=== PATIENT | female | born 1965 | race American Indian/Alaskan Native ===

== ENCOUNTER 2019-05-04 00:31 | Emergency (ER) | payer SELFPAY ==
[2019-05-04 00:43] VITALS: BP 142/84
--- NOTE | 2019-05-04 01:11 | XRay Report ---
CHEST 2 VIEWS INDICATION / CLINICAL INFORMATION: cough. COMPARISON: None available. FINDINGS: SUPPORT DEVICES: None. HEART / MEDIASTINUM: No significant abnormality. LUNGS / PLEURA: Mild prominence of bibasilar bronchial structures which could represent bronchitis. N o acute airspace disease. No pneumothorax. ADDITIONAL FINDINGS: No significant additional findings. IMPRESSION: 1. Possible bibasilar bronchitis. Signer Name: Martina Carr MD Signed: 05/04/2019 1:07 AM Workstation Name: [id number]
[2019-05-04] MEDS ORDERED: predniSONE 20 MG TAB PO ONE (04:49)
[2019-05-04] MEDS ORDERED: ACETAMINOPHEN 325 MG TAB PO ONE (04:49)
--- NOTE | 2019-05-04 04:52 | Emergency Department Report ---
Minor Respiratory - HPI Chief Complaint: Fever Stated Complaint: FEVER,COUGH Time Seen by Provider: 05/04/19 03:53 Pain Location: Throat Severity: mild Minor Respiratory: Yes Rhinorrhea, Yes Fever (low grade), No Sore Throat, No Able to Tolerate Fluids, No Ear Pain, No Cough, No Sick Contacts, No Hemoptysis, No Chest Pain, No Shortness of Breath Other History: This is a 53-year-old female presents the ED complaining of fever cough sore throat and body aches for the past 3 days. Patient states is been taking cold and flu medications today. Patient states that she has no asthma or COPD. Patient denies any shortness of breath or chest pain. Patient states coughing is dry intermittent throughout the day causing her throat to hurt. And causing a headache. ED Review of Systems ROS: Stated complaint: FEVER,COUGH Other details as noted in HPI Comment: All other systems reviewed and negative ED Past Medical Hx - Past Medical History Previous Medical History?: Yes Hx Hypertension: Yes (preeclampsia) - Surgical History Past Surgical History?: No - Social History Smoking Status: Never Smoker Substance Use Type: None - Medications Home Medications: Home Medications Medication Instructions Recorded Confirmed Last Taken Type Acetamin/Codeine 120-12Mg/5 ml 5 ml PO TID PRN #60 ml 05/04/19 Unknown Rx [Tylenol/Codeine] Albuterol INH(or & Nicu Only) 2 puff IH QID PRN #8.5 gram 05/04/19 Unknown Rx [ProAir HFA Inhaler] Benzonatate [Tessalon Perles] 100 mg PO Q8HR #30 capsule 05/04/19 Unknown Rx Minor Respiratory Exam - Exam General: Vital signs noted. No distress. Alert and acting appropriately. HEENT: Yes Moist Mucous Membranes, No Pharyngeal Erythema, No Pharyngeal Exudates, No Rhinorrhea, No Conjuctival Injection, No Frontal Tenderness, No Maxillary Tenderness Ear: Neither TM Bulge, Neither TM Erythema, Neither EAC Pain, Neither EAC Discharge Neck: Yes Supple, No Adenopathy Lungs: Yes Good Air Exchange, No Wheezes, No Ronchi, No Stridor, No Cough, No Labored Respirations, No Retractions, No Use of Accessory Muscles, No Other Abnormal Lung Sounds Heart: Yes Regular, No Murmur Abdomen: Yes Normal Bowel Sounds, No Tenderness, No Peritoneal Signs Skin: No Rash, No Edema Neurologic: Alert and oriented, no deficits. Musculoskeletal: Unremarkable. ED Course Vital Signs 05/04/19 05/04/19 00:37 03:07 Temperature 99.8 F H 98.9 F Pulse Rate 118 H 92 H Respiratory 20 Rate Blood Pressure 142/84 O2 Sat by Pulse 97 Oximetry ED Medical Decision Making - Radiology Data Radiology results: report reviewed, image reviewed INDICATION / CLINICAL INFORMATION: cough. COMPARISON: None available. FINDINGS: SUPPORT DEVICES: None. HEART / MEDIASTINUM: No significant abnormality. LUNGS / PLEURA: Mild prominence of bibasilar bronchial structures which could represent bronchitis. No acute airspace disease. No pneumothorax. ADDITIONAL FINDINGS: No significant additional findings. IMPRESSION: 1. Possible bibasilar bronchitis. Signer Name: Martina Carr MD Signed: 05/04/2019 1:07 AM Workstation Name: [id number] Transcribed By: DT Dictated By: Jordan Carr MD Electronically Authenticated By: Jordan Carr MD Signed Date/Time: 05/04/19106 - Medical Decision Making 53-year-old female presents with viral bronchitis. Patient is in no acute or respiratory distress. Patient was treated with prednisone, pain and cough suppressant in the ED. Vital signs normalized patient is in no distress Discussed follow-up with primary care physician in 3 to 5 days. Chest x-ray shows no signs of acute infection or pneumonia. See report above Discussed x-ray findings with the patient. Critical care attestation.: If time is entered above; I have spent that time in minutes in the direct care of this critically ill patient, excluding procedure time. ED Disposition Clinical Impression: Bronchitis, Upper respiratory infection, Viral syndrome Disposition: DC-01 TO HOME OR SELFCARE Is pt being admited?: No Does the pt Need Aspirin: No Condition: Stable Instructions: Upper Respiratory Infection (ED), Chronic Bronchitis (ED), Viral Syndrome (ED) Additional Instructions: Make sure to follow up with the primary care physician as discussed. Take all your medications as you've been prescribed. If you have any worsening symptoms or develop new symptoms please return to ED immediately. Prescriptions: Albuterol INH(or & Nicu Only) [ProAir HFA Inhaler] 2 puff IH QID PRN #8.5 gram PRN Reason: Shortness Of Breath Benzonatate [Tessalon Perles] 100 mg PO Q8HR #30 capsule Acetamin/Codeine 120-12Mg/5 ml [Tylenol/Codeine] 5 ml PO TID PRN #60 ml PRN Reason: Pain Referrals: PRIMARY CARE, [Primary Care Provider] - 3-5 Days [facility] [Outside] - 3-5 Days [facility] [Outside] - 3-5 Days Forms: Accompanied Note, Work/School Release Form(ED) Time of Disposition: 04:52
== END 2019-05-04 05:05 | disposition home or self-care (01) ==
LOC: ED 00:31
DX: J40 Bronchitis, not specified as acute or chronic (principal); J06.9 Acute upper respiratory infection, unspecified; B34.9 Viral infection, unspecified
CPT/HCPCS: 71046; 99283; J7512

== ENCOUNTER 2021-08-04 04:38 | Emergency (ER) | payer OTHER ==
[2021-08-04 05:51] LABS: Basophils % (Auto) 0.4 % (0.0-1.8); Eosinophils # (Auto) 0.1 K/mm3 (0.0-0.4); Eosinophils % (Auto) 1.6 % (0.0-4.3); Hematocrit 37.9 % (30.3-42.9); Hemoglobin 12.1 gm/dl (10.1-14.3); Lymphocytes # (Auto) 1.3 K/mm3 (1.2-5.4); Lymphocytes % (Auto) 22.2 % (13.4-35.0); Mean Corpuscular HGB Conc 32 % (30-34); Mean Corpuscular Volume 81 fl (79-97); Monocytes # (Auto) 0.4 K/mm3 (0.0-0.8); Monocytes % (Auto) 7.7 % (0.0-7.3); Platelet Count 270 K/mm3 (140-440); Red Blood Count 4.69 M/mm3 (3.65-5.03); Red Cell Distribution Width 16.2 % (13.2-15.2)
[2021-08-04 06:21] LABS: Alanine Aminotransferase 17 units/L (7-56); Albumin 3.9 g/dL (3.9-5); BUN/Creatinine Ratio 17; Blood Urea Nitrogen 15 mg/dL (7-17); Calcium 9.5 mg/dL (8.4-10.2); Hemolysis Index 19
--- NOTE | 2021-08-04 06:58 | Emergency Department Report ---
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 Pt's daughter who was in the exam room with her says they were both watching TV when they both fell asleep. Pt reports that she was trying to go to toilet to urinate when she fell dizzy and fell and tried to get up but could not she even tried to crawl but could not idea. She also mentioned that she was shaking all over her body during that period as well. Trying to get up from sitting or lying down worsen symptoms. She also reports room spinning at that time. No previous history seizure reported. No fever or chills or any other modifying or associated factors noted. - Related Data Previous Rx's Medication Instructions Recorded Last Taken Type Acetamin/Codeine 120-12Mg/5 ml 5 ml PO TID PRN #60 ml 05/04/19 Unknown Rx [Tylenol/Codeine] Albuterol Mdi (or & Nicu Only) 2 puff IH QID PRN #8.5 gram 05/04/19 Unknown Rx [ProAir HFA Inhaler] Benzonatate [Tessalon Perles] 100 mg PO Q8HR #30 capsule 05/04/19 Unknown Rx Meclizine [Antivert] 25 mg PO TID PRN 10 Days #30 tab NS 08/04/21 Unknown Rx Allergies Allergy/AdvReac Type Severity Reaction Status Date / Time No Known Allergies Allergy Verified 08/04/21 04:59 ED Review of Systems ROS: Stated complaint: DIZZY Other details as noted in HPI Comment: All other systems reviewed and negative Neurological: vertigo, other (dizziness) ED Past Medical Hx - Past Medical History Previous Medical History?: Yes Hx Hypertension: Yes (preeclampsia) Hx of Cancer: Yes (Skin) - Surgical History Past Surgical History?: No - Social History Smoking Status: Never Smoker Substance Use Type: None - Medications Home Medications: Home Medications Medication Instructions Recorded Confirmed Last Taken Type Acetamin/Codeine 120-12Mg/5 ml 5 ml PO TID PRN #60 ml 05/04/19 Unknown Rx [Tylenol/Codeine] Albuterol Mdi (or & Nicu Only) 2 puff IH QID PRN #8.5 gram 05/04/19 Unknown Rx [ProAir HFA Inhaler] Benzonatate [Tessalon Perles] 100 mg PO Q8HR #30 capsule 05/04/19 Unknown Rx Meclizine [Antivert] 25 mg PO TID PRN 10 Days #30 tab NS 08/04/21 Unknown Rx ED Physical Exam - General Limitations: No Limitations General appearance: alert, in no apparent distress - Head Head exam: Present: atraumatic, normal inspection - Eye Eye exam: Present: normal appearance Pupils: Present: normal accommodation - ENT ENT exam: Present: normal exam, normal orophraynx, TM's normal bilaterally - Neck Neck exam: Present: normal inspection, full ROM. Absent: tenderness - Respiratory Respiratory exam: Present: normal lung sounds bilaterally. Absent: respiratory distress, accessory muscle use - Cardiovascular Cardiovascular Exam: Present: regular rate, normal rhythm, normal heart sounds - GI/Abdominal GI/Abdominal exam: Present: soft, normal bowel sounds. Absent: distended, tenderness - Extremities Exam Extremities exam: Present: normal inspection, pedal edema (non pitting ). Absent: tenderness, joint swelling - Back Exam Back exam: Absent: tenderness - Neurological Exam Neurological exam: Present: alert, oriented X3 - Psychiatric Psychiatric exam: Present: normal affect, normal mood - Skin Skin exam: Present: warm, normal color ED Course Vital Signs 08/04/21 08/04/21 08/04/21 04:38 07:26 07:27 Temperature 98 F Pulse Rate 70 Pulse Rate [ 83 Lying] Pulse Rate [ 75 Sitting] Pulse Rate [ 84 Standing] Respiratory 16 Rate Blood Pressure 140/80 Blood Pressure 129/54 [Lying] Blood Pressure 143/65 [Sitting] Blood Pressure 140/82 [Standing] O2 Sat by Pulse 100 99 Oximetry 08/04/21 08/04/21 08/04/21 07:29 07:31 07:46 Temperature Pulse Rate 75 77 Pulse Rate [ Lying] Pulse Rate [ Sitting] Pulse Rate [ Standing] Respiratory 24 24 Rate Blood Pressure 130/70 130/70 Blood Pressure [Lying] Blood Pressure [Sitting] Blood Pressure [Standing] O2 Sat by Pulse 97 96 Oximetry 08/04/21 08/04/21 08/04/21 08:00 08:16 08:51 Temperature Pulse Rate 65 Pulse Rate [ Lying] Pulse Rate [ Sitting] Pulse Rate [ Standing] Respiratory 15 Rate Blood Pressure 130/70 140/82 Blood Pressure [Lying] Blood Pressure [Sitting] Blood Pressure [Standing] O2 Sat by Pulse 97 97 98 Oximetry 08/04/21 08/04/21 08/04/21 09:00 09:16 09:30 Temperature Pulse Rate 81 81 75 Pulse Rate [ Lying] Pulse Rate [ Sitting] Pulse Rate [ Standing] Respiratory 12 13 23 Rate Blood Pressure 140/82 140/82 Blood Pressure [Lying] Blood Pressure [Sitting] Blood Pressure [Standing] O2 Sat by Pulse 99 99 98 Oximetry 08/04/21 08/04/21 08/04/21 09:46 10:00 10:16 Temperature Pulse Rate 80 70 71 Pulse Rate [ Lying] Pulse Rate [ Sitting] Pulse Rate [ Standing] Respiratory 12 15 15 Rate Blood Pressure 140/82 140/82 124/60 Blood Pressure [Lying] Blood Pressure [Sitting] Blood Pressure [Standing] O2 Sat by Pulse 99 98 99 Oximetry 08/04/21 08/04/21 08/04/21 10:30 10:46 11:00 Temperature Pulse Rate 77 68 72 Pulse Rate [ Lying] Pulse Rate [ Sitting] Pulse Rate [ Standing] Respiratory 22 17 20 Rate Blood Pressure 124/60 124/60 129/69 Blood Pressure [Lying] Blood Pressure [Sitting] Blood Pressure [Standing] O2 Sat by Pulse 98 97 98 Oximetry 08/04/21 08/04/21 11:16 11:30 Temperature Pulse Rate 70 77 Pulse Rate [ Lying] Pulse Rate [ Sitting] Pulse Rate [ Standing] Respiratory 21 19 Rate Blood Pressure 129/69 129/69 Blood Pressure [Lying] Blood Pressure [Sitting] Blood Pressure [Standing] O2 Sat by Pulse 97 98 Oximetry - Reevaluation(s) Reevaluation #1: 08/04/21 13:14 Patient had IV fluids and reported feeling much better was able to get up from walk to the bathroom to urinate without any fall or symptoms. We will discharge patient home on meclizine with close follow-up with primary doctor. ED Medical Decision Making - Lab Data Result diagrams: 08/04/21 05:38 08/04/21 05:38 - EKG Data -: EKG Interpreted by Me EKG shows normal: sinus rhythm Rate: normal - EKG Data 08/04/21 13:12 Noted with normal sinus rhythm at a rate of 69 bpm with normal QTC and no ST depression or elevation noted in this normal ECG. - Radiology Data CT scan of the brain noted to be negative for any intracranial or hemorrhage. - Medical Decision Making Brought in by EMS with dizziness and a fall --and noted room spinning which is concerning for vertigo but could also be seizure but could not rule out other differential such as CVA especially posterior stroke considering the presenting dizziness/vertigo, or symptomatic anemia, myocardial infarction, pulmonary embolism considering his recent long travels, anxiety, and hypothyroidism--in order to rule those out I will go ahead and order routine cardiopulmonary work- up that include troponin, EKG, chest x-ray, BNP, CKMB, and CBC, CMP, Urinalysis and thyroid panel for any correctable infectious process or electrolyte abnormality as a cause. Will also order CT brain for any intracranial abnormality as mentioned above. In the meantime will give ivf ns 1L bolus for hydration as most are dehydrated in the hot weather anyway. Noted with elevated d-dimer 254.9 couple with her leg swellings with recent long road trip -- raise concern for DVT so doppler ordered for further evaluation Doppler ultrasound resulted to be negative for DVT--leg swelling is likely as a result of long travel and dependent. Will encourage patient to elevate legs above buttocks when laying down or sleeping. Critical care attestation.: If time is entered above; I have spent that time in minutes in the direct care of this critically ill patient, excluding procedure time. ED Disposition Clinical Impression: Dizziness, Vertigo Disposition: 01 HOME / SELF CARE / HOMELESS Is pt being admited?: No Does the pt Need Aspirin: No Condition: Stable Instructions: Dizziness, [id number] Additional Instructions: Please take your time when getting up from sitting or lying down to prevent fall and give your system time to recover Take your new medication meclizine as prescribed to help your symptoms-- Increase your daily fluid to help your hydration Please call and follow-up with your primary doctor in the next 3 to 5 days for progress Please do not hesitate to call or return to emergency room if your symptoms worsen as this could be complication that need to be reevaluated and treated Prescriptions: Meclizine [Antivert] 25 mg PO TID PRN 10 Days #30 tab NS PRN Reason: Vertigo Referrals: PRIMARY CARE,MD [Primary Care Provider] - 3-5 Days
[2021-08-04 07:59] LABS: Free T4 (Free Thyroxine) 0.93 ng/dL (0.76-1.46)
--- NOTE | 2021-08-04 08:56 | Cat Scan Report ---
NONENHANCED CT SCAN OF THE HEAD: INDICATION / CLINICAL INFORMATION: 55 years Female; dizziness/vertigo. "History of fell down and unable to get up from one hour" TECHNIQUE: Routine CT head without contrast. All CT scans at this location are performed using CT dos e reduction for ALARA by means of automated exposure control. COMPARISON: None. FINDINGS: BRAIN / INTRACRANIAL CONTENTS: No intracranial sequela from the trauma; no scalp hematoma; no fluid l evel in the paranasal sinuses No acute hemorrhage, mass effect, midline shift, hydrocephalus, or acut e, large territorial infarct. No chronic infarct or focal atrophy. Normal brain volume and ventricula r/sulcal size for age. No significant white matter abnormality. CRANIOCERVICAL JUNCTION: No significant abnormality. ORBITS: No significant abnormality of visualized orbits. SINUSES / MASTOIDS: No significant abnormality of the visualized paranasal sinuses or mastoid air anamaria ls. ADDITIONAL FINDINGS: Empty sella IMPRESSION: No focal parenchymal lesion: No intracranial sequela from the trauma Signer Name: Carolina Nelson MD Signed: 08/04/2021 8:51 AM Workstation Name: [email or web address]
[2021-08-04 09:23] LABS: Bilirubin,Urine NEG (Negative); Blood,Urine NEG (Negative); Color,Urine Straw (Yellow); Protein,Urine <15 mg/dL mg/dL (Negative); Urobilinogen,Urine < 2.0 mg/dL (<2.0)
[2021-08-04 09:28] LABS: Hyaline Casts,Urine 2 /LPF; WBC,Urine < 1.0 /HPF (0.0-6.0)
--- NOTE | 2021-08-04 12:48 | Vascular Lab Report ---
DUPLEX DOPPLER LOWER EXTREMITY VEINS, BILATERAL INDICATION: edema with recent long travel with elevated dimer. TECHNIQUE: Duplex doppler imaging was performed through the veins of both lower extremities using ve nous compression and other maneuvers. COMPARISON: No relevant prior imaging study available. FINDINGS: Right Common femoral vein: Negative. Right Superficial femoral vein: Negative. Right Popliteal vein: Negative. Right Calf veins: Negative. Left Common femoral vein: Negative. Left Superficial femoral vein: Negative. Left Popliteal vein: Negative. Left Calf veins: Negative. Additional findings: None. IMPRESSION: No sonographic evidence for DVT in either lower extremity. Signer Name: Johnny Tarango Jr, MD Signed: 08/04/2021 12:43 PM Workstation Name: [id number]
[2021-08-04 14:13] VITALS: BP 134/64
--- NOTE | 2021-08-05 12:08 | Electrocardiograph Report ---
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
== END 2021-08-04 14:12 | disposition home or self-care (01) ==
LOC: ED 04:38
DX: R42 Dizziness and giddiness (principal); I10 Essential (primary) hypertension; Z85.828 Personal history of other malignant neoplasm of skin; Z79.899 Other long term (current) drug therapy
CPT/HCPCS: 36415; 70450; 80053; 81001; 84439; 84443; 84484; 85025; 85379; 93005; 93970; 99284